=== PATIENT | female | born 1965 | race Hispanic/Latino ===

== ENCOUNTER 2017-03-12 13:23 | Outpatient (CLI) | payer MEDICARE ==
--- NOTE | 2017-03-12 14:37 | Ultrasound Report ---
RIGHT BREAST ULTRASOUND: 03/12/17 13:23:00 CLINICAL: Mammographic asymmetry in the upper breast. COMPARISON: 03/04/17 FINDINGS: Ultrasound of the upper right breast was performed and demonstrated a single benign cyst at 10 o'clock 6 cm from nipple measuring 5 x 3 x 4 mm.No other cyst and no solid mass. IMPRESSION: Benign cyst at 10 o'clock and no suspicious finding. BI-RADS 2 - - Benign RECOMMENDATION: Routine mammographic screening in one year.
== END 2017-03-12 13:24 | disposition home or self-care (01) ==
LOC: SPVWC 13:23
PROVIDERS: ATTEND Surgery
DX: N60.01 Solitary cyst of right breast (principal); N64.89 Other specified disorders of breast; Z80.3 Family history of malignant neoplasm of breast

== ENCOUNTER → 2018-02-25 | Outpatient (CLI) | payer MEDICARE ==
--- NOTE | 2018-02-25 16:22 | Mammography Report ---
BILATERAL DIGITAL SCREENING MAMMOGRAM with CAD and DIGITAL BREAST TOMOSYNTHESIS (DBT) : 02/25/18 CLINICAL: Routine screening. COMPARISON:12/26/17 left mammogram, 03/04/17 right mammogram and 02/07/17 bilateral screening mammogram FINDINGS: The breasts are extremely dense, which limits the sensitivity of mammography. A 5.5 cm mostly fatty mass of the upper inner right breast. No other mass, architectural distortion or suspicious calcifications. IMPRESSION: No mammographic evidence of malignancy. A benign right upper inner lipoma or hamartoma. BI-RADS CATEGORY: 2 - - Benign RECOMMENDATION: Routine mammographic screening in one year. COMMENT: Patient follow-up letters are generated by our [employer] application.
== END | disposition home or self-care (01) ==
LOC: SPVWC 14:31
PROVIDERS: ATTEND Surgery
DX: Z12.31 Encounter for screening mammogram for malignant neoplasm of breast (principal)
CPT/HCPCS: 77063; 77067